=== PATIENT | male | born 1980 | race Two or more races ===

== ENCOUNTER → 2020-10-01 | Outpatient (BNVA) | payer BC, OTHER, SELFPAY | END | disposition home or self-care (01) | PROVIDERS: PCP Internal Medicine; Visit Provider Urology | DX: I10 Essential (primary) hypertension (principal) ==

== ENCOUNTER → 2024-08-19 | Outpatient (CLI) | payer BC, OTHER, SELFPAY ==
[2024-08-19 09:32] LABS: Quantiferon-TB* See Sep Rpt
[2024-08-19 10:47] LABS: Alanine Aminotransferase 19 U/L (10-49); Aspartate Amino Transferase 25 U/L (0-34)
== END | disposition home or self-care (01) ==
LOC: COPL 09:06
PROVIDERS: PCP Family Medicine; Referring Provider Physician Assistant; Visit Provider Physician Assistant
DX: L40.0 Psoriasis vulgaris (principal)
CPT/HCPCS: 36415; 84450; 84460; 86480